=== PATIENT | female | born 1950 ===

== ENCOUNTER 2018-05-01 09:48 | Emergency (ER) | payer MEDICARE, OTHER ==
--- NOTE | 2018-05-01 10:46 | ED PDOC ---
Arrival/HPI - General Historian: Patient, Family - History of Present Illness Narrative History of Present Illness (Text): 05/01/18 10:43 67yr old female presents today with urinary frequency and suprapubic pain upon urination since last night. c/o subjective fevers at home. c/o slight right sided back pain. denies n/v/d/c. pt c/o abdominal pain. no dizziness or weakness. no medications taken at home. no other complaints. <Harriet Goddard - Last Filed: 05/01/18 20:11> <Max White - Last Filed: 05/02/18 12:40> - General Chief Complaint: Female Genitourinary Time Seen by Provider: 05/01/18 10:00 Past Medical History - Provider Review Nursing Documentation Reviewed: Yes - Travel History Have you recently traveled outside [place] w/in the past 3 mons?: No - Tetanus Immunization Tetanus Immunization: Unknown - Psychiatric Hx Substance Use: No <Harriet Goddard - Last Filed: 05/01/18 20:11> Family/Social History - Physician Review Nursing Documentation Reviewed: Yes Family/Social History: Unknown Family HX Smoking Status: Never Smoked Hx Alcohol Use: Yes Frequency of alcohol use: Few days per week Hx Substance Use: No <Harriet Goddard - Last Filed: 05/01/18 20:11> Allergies/Home Meds <Harriet Goddard - Last Filed: 05/01/18 20:11> <Max White - Last Filed: 05/02/18 12:40> Allergies/Adverse Reactions: Allergies No Known Allergies Allergy (Verified 05/01/18 10:05) Review of Systems - Review of Systems Constitutional: Fevers. absent: Fatigue Respiratory: absent: SOB, Cough Cardiovascular: absent: Chest Pain, Palpitations Gastrointestinal: Abdominal Pain. absent: Constipation, Diarrhea, Nausea, Vomiting Genitourinary Female: Frequency Musculoskeletal: Back Pain. absent: Arthralgias, Neck Pain Skin: absent: Rash, Pruritis Neurological: absent: Headache, Dizziness Psychiatric: absent: Anxiety, Depression <Harriet Goddard - Last Filed: 05/01/18 20:11> Physical Exam Vital Signs Reviewed: Yes Vital Signs Temp Pulse Resp BP Pulse Ox 05/01/18 10:01 99.8 F H 80 18 124/78 98 Temperature: Afebrile Blood Pressure: Normal Pulse: Regular Respiratory Rate: Normal Appearance: Positive for: Well-Appearing, Non-Toxic, Comfortable Pain Distress: None Mental Status: Positive for: Alert and Oriented X 3 - Systems Exam Head: Present: Atraumatic Mouth: Present: Moist Mucous Membranes Neck: Present: Normal Range of Motion Respiratory/Chest: Present: Clear to Auscultation, Good Air Exchange. No: Respi ratory Distress, Accessory Muscle Use Cardiovascular: Present: Regular Rate and Rhythm, Normal S1, S2. No: Murmurs Abdomen: Present: Tenderness (+ rlq and suprapubic tenderness), Normal Bowel Sounds. No: Peritoneal Signs, Rebound, Guarding Back: Present: Normal Inspection. No: CVA Tenderness, Midline Tenderness, Paraspinal Tenderness Upper Extremity: Present: Normal ROM Lower Extremity: Present: Normal ROM Neurological: Present: GCS=15, Speech Normal Skin: Present: Warm, Dry, Normal Color. No: Rashes Psychiatric: Present: Alert, Oriented x 3 <LeidyiaHarriet T - Last Filed: 05/01/18 20:11> Vital Signs Temp Pulse Resp BP Pulse Ox 05/01/18 13:31 98 F 85 19 127/53 L 100 05/01/18 12:35 98 F 88 18 125/78 98 05/01/18 10:01 99.8 F H 80 18 124/78 98 <Geovany Whiteoper - Last Filed: 05/02/18 12:40> Medical Decision Making ED Course and Treatment: 05/01/18 10:46 Patient is nontoxic well appearing with stable vital signs presenting with [severe] abdominal pain CBC wnl CMP wnl Urinalysis + leukocytes, + bacteria, + blood CAT scan: FINDINGS: LOWER THORAX: Mild bibasilar atelectasis. No visible pleural effusion or pneumothorax. Partially imaged cardiomegaly. LIVER: Unremarkable. GALLBLADDER AND BILE DUCTS: Unremarkable. PANCREAS: Unremarkable. SPLEEN: Unremarkable. ADRENALS: Unremarkable. KIDNEYS AND URETERS: The kidneys enhance symmetrically. No hydronephrosis or obstructing calculus identified. 4.6 cm left renal hypodense lesion measures slightly higher than expected for a simple cyst. VASCULATURE: No aortic aneurysm. No atherosclerotic calcification or mural plaque present. BOWEL: Stomach is nondistended. Lack of oral contrast limits evaluation for bowel pathology. Bowel loops appear within normal limits of caliber without evidence of obstruction. APPENDIX: The appendix appears within normal limits of caliber. No secondary signs of acute appendicitis. PERITONEUM: No significant free fluid. No definite free air. LYMPH NODES: No bulky adenopathy identified. BLADDER: Mildly thick-walled urinary bladder; correlate with urinalysis. REPRODUCTIVE: The uterus is present. BONES: Degenerative changes. OTHER FINDINGS: None. IMPRESSION: The appendix appears within normal limits of caliber. No secondary signs of acute appendicitis. 4.6 cm left renal hypodense lesion measures slightly higher than expected for a simple cyst. Partially imaged cardiomegaly. Mild bibasilar atelectasis Patient reassessment: pt is non toxic well appearing; no distress. stable vitals. pt started on keflex for UTI. Discussed all results with patient in depth. Advised follow-up with primary care physician within the next 2 days and return immediately if symptoms worsen persist or if new concerning symptoms develop. Advised taking antibiotics as prescribed. Patient verbalizes understanding of discharge instructions and need for immediate followup. all aspects of this case were discussed the attending of record. Impression: UTI Motrin every 6 hours as needed for pain keflex; 1 capsule twice daily x 10 days Follow up with primary care physician within the next 2 days Follow up with the urologist within the next 2 days. Return immediately if symptoms worsen persist or if new symptoms develop: High fevers, increasing pain, vomiting, diarrhea or any other concerning symptoms develop <AzoHarriet simon - Last Filed: 05/01/18 20:11> - Lab Interpretations Lab Results: Total Bilirubin 1.5 mg/dL (0.2-1.3) H 05/01/18 10:40 AST 103 U/L (14-36) H 05/01/18 10:40 ALT 88 U/L (7-56) H 05/01/18 10:40 Alkaline Phosphatase 184 U/L (38-126) H 05/01/18 10:40 Total Protein 7.0 g/dL (5.8-8.3) 05/01/18 10:40 Albumin 3.7 g/dL (3.0-4.8) 05/01/18 10:40 Globulin 3.3 gm/dL 05/01/18 10:40 Albumin/Globulin Ratio 1.1 (1.1-1.8) 05/01/18 10:40 Urine Color Light yellow (YELLOW) 05/01/18 10:40 Urine Appearance Slight-cloudy (CLEAR) 05/01/18 10:40 Urine pH 6.0 (4.7-8.0) 05/01/18 10:40 Ur Specific [place] 1.025 (1.005-1.035) 05/01/18 10:40 Urine Protein 100 mg/dL (<30 mg/dL) H 05/01/18 10:40 Urine Glucose (UA) Negative mg/dL (NEGATIVE) 05/01/18 10:40 Urine Ketones Negative mg/dL (NEGATIVE) 05/01/18 10:40 Urine Blood Large (NEGATIVE) H 05/01/18 10:40 Urine Nitrate Negative (NEGATIVE) 05/01/18 10:40 Urine Bilirubin Negative (NEGATIVE) 05/01/18 10:40 Urine Urobilinogen 1.0 E.U./dL (<1 E.U./dL) H 05/01/18 10:40 Ur Leukocyte Esterase Large Mima/uL (NEGATIVE) H 05/01/18 10:40 Urine RBC Tntc /hpf (0-2) H 05/01/18 10:40 Urine WBC Tntc /hpf (0-6) H 05/01/18 10:40 Ur Epithelial Cells 1 - 3 /hpf (0-5) 05/01/18 10:40 Amorphous Sediment Few /hpf (NONE) 05/01/18 10:40 Urine Bacteria Many /hpf (NONE) 05/01/18 10:40 Urine Other Uyeast /hpf 05/01/18 10:40 - RAD Interpretation Radiology Orders: 05/01/18 10:45 ABD & PELVIS IV CONTRAST ONLY [CT] Stat - Medication Orders Current Medication Orders: Discontinued Medications Acetaminophen (Tylenol 325mg Tab) 975 mg PO STAT STA Stop: 05/01/18 11:11 Last Admin: 05/01/18 11:30 Dose: 975 mg MAR Pain/Vitals Document 05/01/18 11:30 GMI (Rec: 05/01/18 11:31 [id number]) Pain Reassessment Is This A Pain ReAssessment? Yes Sleep Is patient sleeping during reassessment? No Presence of Pain Presence of Pain Yes Cephalexin Monohydrate (Keflex) 500 mg PO STAT STA; Protocol Stop: 05/01/18 12:56 Last Admin: 05/01/18 13:13 Dose: 500 mg Sodium Chloride (Sodium Chloride 0.9%) 500 mls @ 999 mls/hr IV .Q31M STA Stop: 05/01/18 11:40 Last Admin: 05/01/18 11:33 Dose: 999 mls/hr eMAR Start Stop Document 05/01/18 11:33 GMI (Rec: 05/01/18 11:34 [id number]) Intravenous Solution Start Date 05/01/18 Start Time 11:33 End Date 05/01/18 End time 12:10 Total Infusion Time 37 <Max White - Last Filed: 05/02/18 12:40> - PA / CABLE TENDER / Resident Statement / has reviewed & agrees with the documentation as recorded. <Max White - Last Filed: 05/02/18 12:40> Disposition/Present on Arrival - Present on Arrival Any Indicators Present on Arrival: No History of DVT/PE: No History of Uncontrolled Diabetes: No Urinary Catheter: No History of Decub. Ulcer: No History Surgical Site Infection Following: None - Disposition Have Diagnosis and Disposition been Completed?: Yes Disposition Time: 12:28 Patient Plan: Discharge <Harriet Goddard - Last Filed: 05/01/18 20:11> <Max White - Last Filed: 05/02/18 12:40> - Disposition Diagnosis: Urinary tract infection Disposition: HOME/ ROUTINE Condition: GOOD Discharge Instructions (ExitCare): Urinary Tract Infections in Adults Additional Instructions: Motrin every 6 hours as needed for pain keflex; 1 capsule twice daily x 10 days Follow up with primary care physician within the next 2 days Follow up with the urologist within the next 2 days. Return immediately if symptoms worsen persist or if new symptoms develop: High fevers, increasing pain, vomiting, diarrhea or any other concerning symptoms develop Prescriptions: Cephalexin [Keflex] 500 mg PO BID #20 capsule Ibuprofen [Motrin] 600 mg PO Q6H PRN #20 tab PRN Reason: pain/fever reduction Referrals: Heriberto Isaacs MD [Staff Provider] - Follow up with primary Modesta Valldaares MD [Medical Doctor] - Follow up with primary [facility] [Outside] - Follow up with primary Forms: [facility] [employer] [facility] [facility] ([place])
[2018-05-01 11:01] LABS: BASO # 0.01 K/mm3 (0.0-2.0); BASO % 0.1 % (0.0-3.0); EOS % 0.2 % (1.5-5.0); GRAN # 9.55 (1.4-6.5); GRAN % 83.4 % (50.0-68.0); HEMOGLOBIN 11.2 g/dL (12.0-16.0); LYMPH # 0.9 (1.2-3.4); LYMPH % 7.9 % (22.0-35.0); MEAN CELL VOLUME 82.6 fl (80.0-105.0); MEAN CORPUSCULAR HEMOGLOBIN 28.2 pg (25.0-35.0); MEAN CORPUSCULAR HGB CONC 34.1 g/dl (31.0-37.0); MEAN PLATELET VOLUME 9.2 fl (7.0-11.0); MONO % 8.4 % (1.0-6.0); RBC 3.97 10^6/uL (3.5-6.1); RED CELL DISTRIBUTION WIDTH 14.3 % (11.5-14.5); WHITE BLOOD COUNT 11.5 10^3/uL (4.5-11.0)
[2018-05-01 11:02] LABS: URINE BILIRUBIN NEGATIVE (NEGATIVE); URINE BLOOD LARGE (NEGATIVE); URINE GLUCOSE (UA) NEGATIVE (NEGATIVE); URINE LEUKOCYTE ESTERASE LARGE Leu/uL (NEGATIVE); URINE PROTEIN 100 mg/dL (<30 mg/dL)
[2018-05-01 11:03] LABS: URINE APPEARANCE SLIGHT-CLOUDY (CLEAR); URINE COLOR LIGHT YELLOW (YELLOW)
[2018-05-01 11:09] LABS: URINE RBC TNTC /hpf (0-2); URINE WBC TNTC /hpf (0-6)
[2018-05-01 11:10] LABS: URINE AMORPHOUS SEDIMENT FEW /hpf; URINE BACTERIA MANY /hpf
[2018-05-01] MEDS ORDERED: Sodium Chloride 0.9% 500 ML IV STA (11:10)
[2018-05-01 11:25] LABS: ALB/GLOB RATIO 1.1 (1.1-1.8); ALBUMIN 3.7 g/dL (3.0-4.8); ALT/SGPT 88 U/L (7-56); AST/SGOT 103 U/L (14-36); BLOOD UREA NITROGEN 14 mg/dL (7-21); CALCIUM 9.3 mg/dL (8.4-10.5); GFR NON-AFRICAN AMERICAN > 60
[2018-05-01] MEDS ORDERED: Iohexol 350 MG/100 ML VIAL ONE ×2 (11:54→12:22)
[2018-05-01 12:38] VITALS: TEMP 98
--- NOTE | 2018-05-01 12:49 | CT ---
Date of service: 05/01/2018 PROCEDURE: CT Abdomen and Pelvis with contrast HISTORY: rlq abd pain COMPARISON: None available. TECHNIQUE: Contrast dose: 100 mL Omnipaque 350 IV Radiation dose: Total exam DLP = 1677.81 mGy-cm. This CT exam was performed using one or more of the following dose reduction techniques: Automated exposure control, adjustment of the mA and/or kV according to patient size, and/or use of iterative reconstruction technique. FINDINGS: LOWER THORAX: Mild bibasilar atelectasis. No visible pleural effusion or pneumothorax. Partially imaged cardiomegaly. LIVER: Unremarkable. GALLBLADDER AND BILE DUCTS: Unremarkable. PANCREAS: Unremarkable. SPLEEN: Unremarkable. ADRENALS: Unremarkable. KIDNEYS AND URETERS: The kidneys enhance symmetrically. No hydronephrosis or obstructing calculus identified. 4.6 cm left renal hypodense lesion measures slightly higher than expected for a simple cyst. VASCULATURE: No aortic aneurysm. No atherosclerotic calcification or mural plaque present. BOWEL: Stomach is nondistended. Lack of oral contrast limits evaluation for bowel pathology. Bowel loops appear within normal limits of caliber without evidence of obstruction. APPENDIX: The appendix appears within normal limits of caliber. No secondary signs of acute appendicitis. PERITONEUM: No significant free fluid. No definite free air. LYMPH NODES: No bulky adenopathy identified. BLADDER: Mildly thick-walled urinary bladder; correlate with urinalysis. REPRODUCTIVE: The uterus is present. BONES: Degenerative changes. OTHER FINDINGS: None. IMPRESSION: The appendix appears within normal limits of caliber. No secondary signs of acute appendicitis. 4.6 cm left renal hypodense lesion measures slightly higher than expected for a simple cyst. Partially imaged cardiomegaly. Mild bibasilar atelectasis
[2018-05-01 13:34] VITALS: BP 127/53; PULSE 85; RESP 19; O2SAT 100
== END 2018-05-01 13:31 | disposition home or self-care (01) ==
LOC: ED 09:48
DX: N39.0 Urinary tract infection, site not specified (principal)
CPT/HCPCS: 74177; 80053; 81001; 85025; 87086; 87181; 96360; 99284; J7040; Q9967